=== PATIENT | male | born 1980 | race Hispanic/Latino ===

== ENCOUNTER 2024-07-21 16:05 | Emergency (ER) | payer SELFPAY ==
[2024-07-21] MEDS ORDERED: Ondansetron PF 4 MG/2 ML Vial ONE (16:43)
[2024-07-21] MEDS ORDERED: Morphine 4 MG/ML VIAL ONE ×2 (16:43→18:14)
[2024-07-21] MEDS ORDERED: Lidocaine 1% w/Epinephrine 1:100K 20 ML VIAL ONE (16:44)
[2024-07-21] MEDS ORDERED: Boostrix 0.5 ML (Tdap) VIAL (>/=7 yrs of age) ONE (18:46)
[2024-07-21] MEDS ORDERED: Bacitracin 1 PK ONE (18:46)
== END 2024-07-21 19:30 | disposition home or self-care (01) ==
LOC: ERS 16:05
DX: S06.9X1A Unspecified intracranial injury with loss of consciousness of 30 minutes or less, initial encounter (principal); S52.032A Displaced fracture of olecranon process with intraarticular extension of left ulna, initial encounter for closed fracture; S52.571A Other intraarticular fracture of lower end of right radius, initial encounter for closed fracture; S01.81XA Laceration without foreign body of other part of head, initial encounter; S80.812A Abrasion, left lower leg, initial encounter; S80.811A Abrasion, right lower leg, initial encounter; E11.9 Type 2 diabetes mellitus without complications; E78.5 Hyperlipidemia, unspecified; I10 Essential (primary) hypertension; Z23 Encounter for immunization; Z79.4 Long term (current) use of insulin; W11.XXXA Fall on and from ladder, initial encounter; Y93.89 Activity, other specified; Y92.69 Other specified industrial and construction area as the place of occurrence of the external cause
CPT/HCPCS: 12013; 29105; 29125; 70450; 90471; 90715; 96374; 96375; 96376; J2270; J2405